=== PATIENT | female | born 1975 | race Caucasian/White ===

== ENCOUNTER 2017-04-01 01:42 | Emergency (ER) | payer OTHER ==
[2017-04-01 01:51] VITALS: RESP 16
[2017-04-01] MEDS ORDERED: DIPH,PERTUS(ACELL)TETVAC-LF 0.5 ML VIAL IM ONE (02:36)
[2017-04-01] MEDS ORDERED: HYDROcodone/APAP 5-325MG 1 EACH TAB PO STA (02:42)
[2017-04-01] MEDS ORDERED: LEVOFLOXACIN 750 MG TAB PO STA (02:48)
--- NOTE | 2017-04-01 02:56 | ED ---
Lower Extremity Injury HPI - General Chief Complaint: Extremity Injury, Lower Stated Complaint: foot pain Time Seen by Provider: 04/01/17 02:09 Source: patient, RN notes reviewed Mode of arrival: ambulatory Limitations: no limitations - History of Present Illness Initial Comments: Patient is a 41-year-old female presents to the emergency room for evaluation of left foot pain and swelling. Patient states on 03/24/17 she stepped on a nail while wearing her shoe. Patient states the nail went through her shoe and through her foot. Patient states that she has been having increasing pain at the puncture wound and swelling and redness of her foot. Patient states that she has been soaking her foot in peroxide for the past few days. Patient states green pus has been draining from the puncture wound. Patient denies fevers or chills. Patient states she has not had a tetanus vaccine in 20 years. Patient denies any other injuries or complaints. - Related Data Home Medications Medication Instructions Recorded Confirmed Albuterol Inhaler [Ventolin 1 - 2 puff INHALATION Q6HR PRN 01/06/15 01/06/15 Inhaler] DULoxetine HCL [Cymbalta] 60 mg PO BID 01/06/15 01/06/15 HYDROcodone/APAP 10-325MG [[place] 1 each PO Q6H PRN 01/06/15 01/06/15 10] Ibuprofen [Motrin] 800 mg PO Q8HR PRN 01/06/15 01/06/15 Pregabalin [Lyrica] 150 mg PO TID 01/06/15 01/06/15 buPROPion SR [Wellbutrin Sr] 150 mg PO BID 01/06/15 01/06/15 Allergies Allergy/AdvReac Type Severity Reaction Status Date / Time Iodinated Contrast Media - Allergy Anaphylaxis Verified 04/01/17 01:51 Oral and Review of Systems ROS Statement: Those systems with pertinent positive or pertinent negative responses have been documented in the HPI. ROS Other: All systems not noted in ROS Statement are negative. Past Medical History Past Medical History: Asthma, Cancer, Fibromyalgia, GERD/Reflux, Rheumatoid Arthritis (RA) Additional Past Medical History / Comment(s): CA OF CERVIX AND UTERUS History of Any Multi-Drug Resistant Organisms: None Reported Past Surgical History: Hysterectomy Past Psychological History: Anxiety, Bipolar Smoking Status: Heavy tobacco smoker Past Alcohol Use History: Occasional Past Drug Use History: None Reported General Exam - General Exam Comments Initial Comments: sitting in exam room, no acute distress. Limitations: no limitations General appearance: alert, in no apparent distress Head exam: Present: atraumatic, normocephalic, normal inspection Eye exam: Present: normal appearance ENT exam: Present: normal exam Neck exam: Present: normal inspection Respiratory exam: Present: normal lung sounds bilaterally. Absent: respiratory distress Cardiovascular Exam: Present: normal rhythm, tachycardia, normal heart sounds Left Foot/Toe exam: Present: tenderness, swelling, erythema (dorsal foot to the ankle ). Absent: normal inspection (puncture wound on the distal mid plantar foot ) Neurovascular tendon exam: Present: no vascular compromise. Absent: pulse deficit (2+ dorsal pedal and posterior tibial pulses), abnormal cap refill ( capillary refill less than 2 seconds) Back exam: Present: normal inspection Neurological exam: Present: alert, oriented X3, CN II-XII intact Psychiatric exam: Present: normal affect, normal mood Skin exam: Present: warm, dry. Absent: rash Course Vital Signs 04/01/17 04/01/17 01:45 03:19 Temperature 99.2 F 98.7 F Pulse Rate 108 H 110 H Respiratory 16 16 Rate Blood Pressure 127/88 142/98 O2 Sat by Pulse 98 98 Oximetry Medical Decision Making - Medical Decision Making Patient is a 41-year-old female presents to emergency room for evaluation of left foot cellulitis from puncture wound. Labs ordered. X-ray of left foot ordered. Patient updated on her tetanus vaccine. Plan was to admit patient with IV antibiotics. Patient states that she needs to go home first before she is admitted. I explained to patient that she would be leaving AGAINST MEDICAL ADVICE and increased risk of infection and possible loss of her foot if not treated appropriately. Patient given a dose of Levaquin before she left. Case discussed with Dr. Purcell. Disposition Clinical Impression: Cellulitis of left foot, Puncture wound Disposition: Left Against Medical Advice Condition: Stable Referrals: Marcial Lea MD [Primary Care Provider] - 1-2 days
[2017-04-01 03:21] VITALS: BP 142/98; PULSE 110; TEMP 98.7
[2017-04-01 03:29] LABS: Basophils % (A) 1 %; CH 32.3; CHCM 34.1; Eosinophils # (A) 0.6 k/uL (0-0.7); Eosinophils % (A) 9 %; HCT 39.3 % (34.0-46.0); Luc # (Auto) 0.16; Luc % (Auto) 2; Lymphocytes # (A) 1.2 k/uL (1.0-4.8); Lymphocytes % (A) 17 %; MCH 31.4 pg (25.0-35.0); MCHC 33.1 g/dL (31.0-37.0); Monocytes # (A) 0.4 k/uL (0-1.0); Monocytes % (A) 5 %; Neutrophils # (A) 4.8 k/uL (1.3-7.7); Neutrophils % (A) 67 %; RBC 4.13 m/uL (3.80-5.40); RDW 13.3 % (11.5-15.5); WBC 7.3 k/uL (3.8-10.6); WBC (Perox) 7.57
[2017-04-01 03:50] LABS: ALT 27 U/L (9-52); AST 16 U/L (14-36); Alkaline Phosphatase 56 U/L (38-126); Anion Gap 8 mmol/L; Blood Urea Nitrogen 10 mg/dL (7-17); Carbon Dioxide 28 mmol/L (22-30); Chloride 103 mmol/L (98-107); Glucose 81 mg/dL (74-99); Non-African American GFR(MDRD) >60 (>60 ml/min/1.73 sqM); Potassium 3.3 mmol/L (3.5-5.1); Sodium 139 mmol/L (137-145); Total Bilirubin 0.3 mg/dL (0.2-1.3); Total Protein 6.7 g/dL (6.3-8.2)
== END 2017-04-01 03:21 | disposition left against medical advice (07) ==
LOC: EC 01:42
DX: L03.116 Cellulitis of left lower limb (principal); F31.9 Bipolar disorder, unspecified; F17.200 Nicotine dependence, unspecified, uncomplicated; Z85.41 Personal history of malignant neoplasm of cervix uteri; Z91.041 Radiographic dye allergy status; Z53.29 Procedure and treatment not carried out because of patient's decision for other reasons; Z23 Encounter for immunization; Z79.899 Other long term (current) drug therapy
CPT/HCPCS: 36415; 80053; 83605; 85025; 87040; 90471; 90715; 99283

== ENCOUNTER 2017-04-01 05:55 | Observation (INO) | payer OTHER ==
--- NOTE | 2017-04-01 06:12 | ED ---
General Adult HPI - General Chief complaint: Extremity Injury, Lower Stated complaint: Foot infection Time Seen by Provider: 04/01/17 06:00 Source: patient, RN notes reviewed Mode of arrival: ambulatory Limitations: no limitations - History of Present Illness Initial comments: This is a 41-year-old female who presents to the emergency department with cellulitis to the left foot. Patient was here earlier in the evening and she left AGAINST MEDICAL ADVICE. Patient now returns the foot is not getting any better and is extremely painful. Patient states she stepped on a nail approximately to go and is been getting worse ever since but she has not gone standing on. Patient denies any fever. Patient states the foot is not swollen and very erythematous. Patient states touching the foot anywhere is very painful. Patient denies any swelling beyond the foot. She denies any redness. Patient states she did have shoes on when she stepped on the nail. - Related Data Home Medications Medication Instructions Recorded Confirmed Albuterol Inhaler [Ventolin 1 - 2 puff INHALATION Q6HR PRN 01/06/15 01/06/15 Inhaler] DULoxetine HCL [Cymbalta] 60 mg PO BID 01/06/15 01/06/15 HYDROcodone/APAP 10-325MG [[place] 1 each PO Q6H PRN 01/06/15 01/06/15 10] Ibuprofen [Motrin] 800 mg PO Q8HR PRN 01/06/15 01/06/15 Pregabalin [Lyrica] 150 mg PO TID 01/06/15 01/06/15 buPROPion SR [Wellbutrin Sr] 150 mg PO BID 01/06/15 01/06/15 Allergies Allergy/AdvReac Type Severity Reaction Status Date / Time Iodinated Contrast Media - Allergy Anaphylaxis Verified 04/01/17 01:51 Oral and Review of Systems ROS Statement: Those systems with pertinent positive or pertinent negative responses have been documented in the HPI. ROS Other: All systems not noted in ROS Statement are negative. Past Medical History Past Medical History: Asthma, Cancer, Fibromyalgia, GERD/Reflux, Rheumatoid Arthritis (RA) Additional Past Medical History / Comment(s): CA OF CERVIX AND UTERUS History of Any Multi-Drug Resistant Organisms: None Reported Past Surgical History: Hysterectomy Past Psychological History: Anxiety, Bipolar Smoking Status: Heavy tobacco smoker Past Alcohol Use History: Occasional Past Drug Use History: None Reported General Exam - General Exam Comments Initial Comments: GENERAL: Patient is well-developed and well-nourished. Patient is nontoxic and well- hydrated and is in moderate distress. ENT: Neck is soft and supple. No significant lymphadenopathy is noted. Oropharynx is clear. Moist mucous membranes. Neck has full range of motion without eliciting any pain. EYES: The sclera were anicteric and conjunctiva were pink and moist. Extraocular movements were intact and pupils were equal round and reactive to light. Eyelids were unremarkable. PULMONARY: Unlabored respirations. Good breath sounds bilaterally. No audible rales rhonchi or wheezing was noted. CARDIOVASCULAR: There is a regular rate and rhythm without any murmurs gallops or rubs. ABDOMEN: Soft and nontender with normal bowel sounds. No palpable organomegaly was noted. There is no palpable pulsatile mass. SKIN: Skin is clear with no lesions or rashes and otherwise unremarkable. NEUROLOGIC: Patient is alert and oriented x3. Cranial nerves II through XII are grossly intact. Motor and sensory are also intact. Normal speech, volume and content. Symmetrical smile. MUSCULOSKELETAL: Left foot is very swollen and erythematous and tender to palpation. Patient has a small puncture wound on the plantar surface of the foot that appears to be healing over. LYMPHATICS: No significant lymphadenopathy is noted PSYCHIATRIC: Normal psychiatric evaluation. Limitations: no limitations Course Vital Signs 04/01/17 05:57 Temperature 99.2 F Pulse Rate 12 L Respiratory 18 Rate Blood Pressure 131/76 O2 Sat by Pulse 98 Oximetry Medical Decision Making - Medical Decision Making X-ray of the foot shows no acute abnormality. Disposition Clinical Impression: Cellulitis of left foot, Puncture wound of foot Disposition: ADMITTED IP TO THIS HOSP Referrals: Marcial Lea MD [Primary Care Provider] - 1-2 days Time of Disposition: 06:14
[2017-04-01] MEDS ORDERED: PIPERACILLIN-TAZOBACTAM 3.375 GM in DEXTROSE/WATER 1 50ML.BAG IVPB STA (06:15)
[2017-04-01] MEDS ORDERED: SODIUM CHLORIDE 0.9% 1,000 ML IV ONE (06:16)
[2017-04-01] MEDS ORDERED: ONDANSETRON 4 MG/2 ML VIAL IVP STA (06:43)
[2017-04-01] MEDS ORDERED: HYDROmorphone 1 MG/ML 1 ML SYRINGE IVP STA (06:43)
--- NOTE | 2017-04-01 06:47 | XR ---
EXAMINATION TYPE: XR foot limited LT DATE OF EXAM ORDERED: 04/01/2017 HISTORY: Pain. COMPARISON: None. FINDINGS: No fracture, dislocation or radiopaque foreign body is seen. There is mild swelling over t he dorsum of the foot. There is a tiny plantar calcaneal spur. IMPRESSION: NO ACUTE OSSEOUS LESION AND NO RADIOPAQUE FOREIGN BODY.
[2017-04-01] MEDS: KETOROLAC 30 MG/ML 1 ML VIAL IVP SCH ×2 (14:28→23:52)
[2017-04-01] MEDS ORDERED: HYDROmorphone 1 MG/ML 1 ML SYRINGE IVP PRN (15:42)
[2017-04-01] MEDS: HYDROcodone/APAP 5-325MG 1 EACH TAB PO PRN ×2 (15:56→21:41)
[2017-04-01] MEDS ORDERED: PIPERACILLIN-TAZOBACTAM 3.375 GM in DEXTROSE/WATER 1 50ML.BAG IVPB SCH (16:00)
[2017-04-01 18:46] VITALS: BMI 21.8
--- NOTE | 2017-04-01 22:51 | HP ---
DATE OF ADMISSION: 04/01/2017 REASON FOR ADMISSION: Swollen left foot. HISTORY OF PRESENT ILLNESS: This is a 41-year-old female with ongoing tobacco use, comes into the hospital with trauma to the left foot while patient was moving. Patient states that she stepped on a nail on 03/24/2017. Thereafter noted to have significant swelling. Patient has been soaking her leg in peroxide solution. However, as the patient did not notice any improvement and significant swelling of her foot, the patient came to the emergency room for ongoing evaluation. Patient, however, had to leave against medical advice in order to take care of her children and came back into the hospital an hour later. The patient is admitted to the hospital and was given a dose of the Levaquin and Zosyn. Patient was also given a dose of tetanus toxoid appropriately. Today patient's leg appears to be significantly improved from the previous description, does have significant tenderness according to her. No fevers, chills, nausea, vomiting, headaches, blurry vision, abdominal pain, urinary urgency or frequency or diarrhea is reported. Home medications include: 1. Albuterol. 2. Cymbalta. 3. [place]. 4. Motrin. 5. Lyrica. 6. Wellbutrin. ALLERGIES: IV CONTRAST. REVIEW OF SYSTEMS: Fourteen-point review of system was done; none pertinent other than was mentioned above. PAST MEDICAL HISTORY: Includes asthma, GERD, cervical cancer, rheumatoid arthritis. PAST SURGICAL HISTORY: Hysterectomy. PHYSICAL EXAM: VITALS: Temperature 99.2, heart rate is 70 to 80 beats per minute, respiratory rate 18, blood pressure 131/76, saturating 98% on room air. GENERALLY: Patient appears to be alert, oriented x3. HEENT: The pupils are equal and reactive to light and accommodation. HEART: S1, S2 present. No murmur appreciated. LUNGS: Good air entry. No wheezing or rhonchi noted. ABDOMINAL EXAM: Soft, nontender, no organomegaly appreciated. GENITOURINARY: No Salgado in place. EXTREMITIES: Pulses can be palpated distally. Denies any tenderness on gross palpation. NEUROLOGICALLY: Grossly cranial nerves 2-12 intact. No motor or sensory deficits noted. SKIN: Left foot appears to have associated erythema. There was an entry site noted on the sole of the foot around the second metatarsal region. Tender to palpation. However no significant swelling is appreciated at this time. Radiologic x-ray eval of the left foot does not show any foreign objects or any signs of osteomyelitis. ASSESSMENT AND PLAN: 1. Cellulitis of the left foot. 2. Ongoing tobacco. 3. Cervical cancer, previous history. PLAN: Discontinue Zosyn. Continue with Levaquin ( ). Patient is tolerating diet. The patient is improved. Recommend elevation of the left foot. If patient appears to be stable in the next 24 hours, can likely be discharged home with p.o. Levaquin. Patient does not have any signs of systemic infection at this time. The infection does not extend past the ankle.
[2017-04-02] MEDS ORDERED: LEVOFLOXACIN 750MG-D5W PMX 750 MG in DEXTROSE/WATER 1 150ML.BAG IVPB SCH (03:00)
[2017-04-02] MEDS: KETOROLAC 30 MG/ML 1 ML VIAL IVP SCH ×3 (06:20→17:58)
[2017-04-02] MEDS: HYDROcodone/APAP 5-325MG 1 EACH TAB PO PRN (08:35)
[2017-04-02 09:29] LABS: Basophils % (A) 0 %; CH 32.2; CHCM 32.5; Eosinophils # (A) 0.5 k/uL (0-0.7); Eosinophils % (A) 8 %; HCT 41.1 % (34.0-46.0); HDW 2.15; HGB 13.3 gm/dL (11.4-16.0); Luc # (Auto) 0.16; Luc % (Auto) 2; Lymphocytes # (A) 1.1 k/uL (1.0-4.8); Lymphocytes % (A) 16 %; MCH 32.3 pg (25.0-35.0); MCHC 32.4 g/dL (31.0-37.0); MCV 99.5 fL (80.0-100.0); Mean Platelet Volume 7.6; Monocytes # (A) 0.4 k/uL (0-1.0); Monocytes % (A) 5 %; Neutrophils # (A) 4.8 k/uL (1.3-7.7); Neutrophils % (A) 69 %; RBC 4.14 m/uL (3.80-5.40); RDW 13.4 % (11.5-15.5); WBC (Perox) 7.26
[2017-04-02 14:36] VITALS: BP 116/58; PULSE 99; RESP 16; TEMP 98.4
--- NOTE | 2017-04-04 09:27 | DS ---
DATE OF ADMISSION: 04/01/2017 DATE OF DISCHARGE: 04/02/2017 DATE OF SERVICE: 04/02/2017 HOSPITAL COURSE: Ms. Preciado is a 41-year-old female with ongoing tobacco use, admitted to the hospital with the chief complaint of left foot trauma. Patient states that she stepped on a nail on 03/24/2017 and thereafter noted to have some swelling. Patient has been soaking her leg in peroxide solution and she did not notice any improvement and there was significant welling of the foot and so she came into the emergency room for ongoing evaluation. Patient was admitted for a left foot infection. Patient's leg showed improvement as she describes previously there was swelling of her foot which has decreased significantly. She fills some tenderness at the site of penetration injury but no discharge or no redness noticed. Patient does not have any other complaints except for some she mild pain when she tries to bear weight on that limb. As the patient showed significant improvement, the patient is being discharged home and wants to consider course of Levaquin for a total of 10 days. PATIENT'S DISCHARGE DIAGNOSES: 1. Cellulitis of the left foot at point of origin. 2. History of cervical cancer in the past. PATIENT'S DISCHARGE MEDICATIONS: 1. Motrin 800 mg p.o. 3 times a day p.r.n. for pain. 2. Levofloxacin 750 mg p.o. daily for 12 days. The patient is advised to follow with her primary care physician, Dr. Merry Lea in 1 to 2 days. Patient is advised to have weight-bearing as tolerated . If patient notices any swelling or redness, advised to seek medical attention as soon as possible. Patient is being discharged home in a stable condition. More than 35 minutes spent in discharge evaluation. MIKE
== END 2017-04-02 19:52 | disposition home or self-care (01) ==
LOC: EC 05:55 → 4MS4W 06:16
PROVIDERS: ADMIT Hospitalist; ATTEND Hospitalist
DX: L03.116 Cellulitis of left lower limb (principal); J45.909 Unspecified asthma, uncomplicated; M79.7 Fibromyalgia; F41.9 Anxiety disorder, unspecified; F31.9 Bipolar disorder, unspecified; S91.339A Puncture wound without foreign body, unspecified foot, initial encounter; W45.0XXA Nail entering through skin, initial encounter; Z79.899 Other long term (current) drug therapy; Z91.041 Radiographic dye allergy status; Z85.41 Personal history of malignant neoplasm of cervix uteri; F17.200 Nicotine dependence, unspecified, uncomplicated
CPT/HCPCS: 96375 ×3; 96365 ×2; 96376 ×2; 96361; 96366 ×2; 96367; 90471; 99283; 99284; 36415; 80053; 83605; 85025 ×2; 87040; 73620; 90715; G0378 ×2; J2405; J1885 ×2; J1170; J1956; J2543

== ENCOUNTER → 2018-05-11 | Outpatient (CLI) | payer OTHER ==
[2018-05-11 14:45] LABS: HCT 43.8 % (34.0-46.0); HGB 14.1 gm/dL (11.4-16.0); MCH 30.7 pg (25.0-35.0); MCHC 32.1 g/dL (31.0-37.0); MCV 95.6 fL (80.0-100.0); Mean Platelet Volume 7.9; Platelet Count 248 k/uL (150-450); RBC 4.58 m/uL (3.80-5.40); RDW 13.5 % (11.5-15.5); WBC 8.1 k/uL (3.8-10.6)
[2018-05-11 15:03] LABS: ALT 25 U/L (9-52); AST 17 U/L (14-36); Albumin 4.7 g/dL (3.5-5.0); Alkaline Phosphatase 50 U/L (38-126); Anion Gap 9 mmol/L; Blood Urea Nitrogen 6 mg/dL (7-17); Calcium 10.2 mg/dL (8.4-10.2); Carbon Dioxide 26 mmol/L (22-30); Chloride 104 mmol/L (98-107); Cholesterol 200 mg/dL (<200); Glucose 88 mg/dL (74-99); HDL Cholesterol 56 mg/dL (40-60); LDL Cholesterol,Calculated 116 mg/dL (0-99); Potassium 4.7 mmol/L (3.5-5.1); Sodium 139 mmol/L (137-145); Total Bilirubin 0.6 mg/dL (0.2-1.3); Total Protein 7.2 g/dL (6.3-8.2); Triglycerides 138 mg/dL (<150)
[2018-05-11 15:19] LABS: T4, Free (Free Thyroxine) 1.11 ng/dL (0.78-2.19)
--- NOTE | 2018-05-11 16:01 | XR ---
EXAMINATION TYPE: XR mandible complete DATE OF EXAM: 05/11/2018 COMPARISON: NONE HISTORY: Mandibular trauma with subsequent pain. TECHNIQUE: Frontal, lateral, bilateral oblique, and open-mouth views of the mandible were obtained. FINDINGS: There is no evidence of mandibular acute displaced fracture or fracture of the zygomatic ar ches. Paranasal sinuses appear well aerated. There is straightening of the usual cervical lordosis al though cervical alignment and vertebral body heights are maintained in their visualized portions. No prevertebral soft tissue swelling in the upper cervical spine. Nasal bone appears grossly intact. No temporomandibular joint dislocation. IMPRESSION: No radiographic evidence of mandibular fracture or temporomandibular joint dislocation. I f there is persistent pain CT facial bones could be performed.
--- NOTE | 2018-05-11 16:03 | XR ---
EXAMINATION TYPE: XR chest 2V DATE OF EXAM: 05/11/2018 COMPARISON: 02/01/2011 HISTORY: Recent trauma with subsequent chest pain. TECHNIQUE: Frontal and lateral views of the chest are obtained. FINDINGS: There is no focal air space opacity, pleural effusion, or pneumothorax seen. The cardiac silhouette size is within normal limits. The osseous structures are intact. IMPRESSION: No acute cardiopulmonary process.
== END | disposition home or self-care (01) ==
LOC: LABWHC1 14:08
PROVIDERS: ATTEND Internal Medicine
DX: M26.601 Right temporomandibular joint disorder, unspecified (principal); Z00.00 Encounter for general adult medical examination without abnormal findings; J44.9 Chronic obstructive pulmonary disease, unspecified; E78.2 Mixed hyperlipidemia; M19.90 Unspecified osteoarthritis, unspecified site; K21.0 Gastro-esophageal reflux disease with esophagitis
CPT/HCPCS: 36415; 70110; 71046; 80053; 80061; 84439; 84443; 85027

== ENCOUNTER → 2019-08-30 | Outpatient (CLI) | payer OTHER ==
[2019-08-30 12:47] LABS: Basophils % (A) 0 %; Eosinophils # (A) 0.3 k/uL (0-0.7); Eosinophils % (A) 3 %; HCT 44.2 % (34.0-46.0); HGB 14.3 gm/dL (11.4-16.0); Lymphocytes % (A) 20 %; MCH 31.8 pg (25.0-35.0); MCHC 32.4 g/dL (31.0-37.0); MCV 98.2 fL (80.0-100.0); Mean Platelet Volume 8.1; Monocytes # (A) 0.4 k/uL (0-1.0); Monocytes % (A) 4 %; Neutrophils # (A) 6.7 k/uL (1.3-7.7); Neutrophils % (A) 70 %; Platelet Count 242 k/uL (150-450); RDW 12.5 % (11.5-15.5); WBC 9.6 k/uL (3.8-10.6)
[2019-08-30 20:08] LABS: Albumin 4.9 g/dL (3.80-4.90); Albumin/Globulin Ratio 2.58 (1.60-3.17); Bilirubin, Conjugated 0.2 mg/dL (0.20-0.40); Bilirubin,Unconjugated 0.3 mg/dL; Globulin 1.9 g/dL (1.6-3.3); Total Bilirubin 0.5 mg/dL (0.3-1.2); Total Protein 6.8 g/dL (6.2-8.2)
== END | disposition home or self-care (01) ==
LOC: LABWHC1 10:51
PROVIDERS: ATTEND Nurse Practitioner Family
DX: Z51.81 Encounter for therapeutic drug level monitoring (principal); Z79.899 Other long term (current) drug therapy
CPT/HCPCS: 36415; 80076; 80164; 85025

== ENCOUNTER → 2020-01-01 | Outpatient (CLI) | payer OTHER ==
[2020-01-01 11:12] LABS: Basophils % (A) 1 %; Eosinophils # (A) 0.3 k/uL (0-0.7); Eosinophils % (A) 6 %; HCT 39.8 % (34.0-46.0); HGB 13.1 gm/dL (11.4-16.0); Lymphocytes # (A) 1.5 k/uL (1.0-4.8); Lymphocytes % (A) 28 %; MCH 32.6 pg (25.0-35.0); MCHC 32.8 g/dL (31.0-37.0); MCV 99.3 fL (80.0-100.0); Mean Platelet Volume 8.9; Monocytes # (A) 0.3 k/uL (0-1.0); Monocytes % (A) 7 %; Neutrophils # (A) 2.8 k/uL (1.3-7.7); Neutrophils % (A) 55 %; Platelet Count 220 k/uL (150-450); RBC 4.01 m/uL (3.80-5.40); RDW 13.4 % (11.5-15.5); WBC 5.1 k/uL (3.8-10.6)
[2020-01-01 17:57] LABS: Valproic Acid (Depakene) 59.8 ug/mL (50.0-100.0)
[2020-01-01 18:25] LABS: ALT 19 U/L (8-44); AST 17 U/L (13-35); Albumin/Globulin Ratio 2.42 (1.60-3.17); Alkaline Phosphatase 38 U/L (41-126); Bilirubin, Conjugated <0.20 mg/dL (0.20-0.40); Globulin 1.9 g/dL (1.6-3.3); Total Bilirubin 0.2 mg/dL (0.2-1.2); Total Protein 6.5 g/dL (6.2-8.2)
== END | disposition home or self-care (01) ==
LOC: LABWHC1 09:53
PROVIDERS: ATTEND Nurse Practitioner Family
DX: Z51.81 Encounter for therapeutic drug level monitoring (principal); Z79.899 Other long term (current) drug therapy
CPT/HCPCS: 36415; 80076; 80164; 85025

== ENCOUNTER → 2020-03-21 | Outpatient (CLI) | payer OTHER ==
[2020-03-21 13:03] LABS: Basophils % (A) 0 %; Eosinophils # (A) 0.4 k/uL (0-0.7); Eosinophils % (A) 6 %; HCT 43.3 % (34.0-46.0); HGB 13.7 gm/dL (11.4-16.0); Lymphocytes # (A) 1.7 k/uL (1.0-4.8); Lymphocytes % (A) 24 %; MCH 31.6 pg (25.0-35.0); MCHC 31.6 g/dL (31.0-37.0); MCV 100.1 fL (80.0-100.0); Mean Platelet Volume 9.5; Monocytes # (A) 0.4 k/uL (0-1.0); Monocytes % (A) 6 %; Neutrophils # (A) 4.2 k/uL (1.3-7.7); Neutrophils % (A) 61 %; Platelet Count 201 k/uL (150-450); RBC 4.32 m/uL (3.80-5.40); RDW 12.8 % (11.5-15.5)
[2020-03-21 19:14] LABS: Valproic Acid (Depakene) 73.7 ug/mL (50.0-100.0)
[2020-03-21 19:20] LABS: ALT 25 U/L (8-44); AST 21 U/L (13-35); Albumin/Globulin Ratio 2.14 (1.60-3.17); Alkaline Phosphatase 38 U/L (41-126); Bilirubin, Conjugated <0.20 mg/dL (0.20-0.40); Globulin 2.1 g/dL (1.6-3.3); Total Bilirubin 0.3 mg/dL (0.2-1.2); Total Protein 6.6 g/dL (6.2-8.2)
== END | disposition home or self-care (01) ==
LOC: LABWHC1 11:38
PROVIDERS: ATTEND Nurse Practitioner Family
DX: Z51.81 Encounter for therapeutic drug level monitoring (principal); Z79.899 Other long term (current) drug therapy
CPT/HCPCS: 36415; 80076; 80164; 85025

== ENCOUNTER → 2023-07-05 | Outpatient (CLI) | payer OTHER ==
[2023-07-05 16:41] LABS: HGB 12.5 d/dL (12.0-15.0); MCH 31.6 pg (27.0-32.0); MCHC 32.9 d/dL (32.0-37.0); MCV 96.2 FL (80.0-97.0); Mean Platelet Volume 11.5 FL (9.5-12.2); NRBC Per 100 WBC 0 X 10*3/uL (0.00-0.01); Platelet Count 182 X 10*3/uL (140-440); RBC 3.95 X 10*6/uL (4.10-5.20); RDW 13.9 % (11.5-14.5)
[2023-07-05 16:57] LABS: ALT 14 U/L (8-44); AST 14 U/L (13-35); BUN/Creat Ratio 13.14 Ratio (12.00-20.00); Blood Urea Nitrogen 9.2 mg/dL (9.0-27.0); Calcium 9.3 mg/dL (8.7-10.3); Carbon Dioxide 27.2 mmol/L (21.6-31.8); Chloride 103 mmol/L (96-109); Chol/HDL Ratio 3.05 Ratio; Glucose 78 mg/dL (70-110); LDL Cholesterol,Calculated 91.3 mg/dL (0.0-131.0); Potassium 4.2 mmol/L (3.5-5.5); Sodium 139 mmol/L (135-145)
== END | disposition home or self-care (01) ==
LOC: LABWHC1 12:00
PROVIDERS: ATTEND Student in an Organized Health Care Education/Training Program
DX: I10 Essential (primary) hypertension (principal); R07.9 Chest pain, unspecified
CPT/HCPCS: 36415; 80048; 80061; 83036; 84443; 84450; 84460; 85027

== ENCOUNTER 2023-07-12 06:07 | Day surgery (SDC) | payer OTHER ==
[2023-07-08 15:31] VITALS: BMI 23.2
[~2023-07-12 06:07] MED LIST: ALPRAZolam 0.25 MG TAB PO PRN; ALPRAZolam 0.5 MG TAB PO PRN; ASPIRIN 325 MG TAB PO STA; HEPARIN SODIUM,PORCINE (1 ML) 2,500 UNIT in SODIUM CHLORIDE 0.9% 250 ML IRRIGATION PRN; HEPARIN SODIUM,PORCINE 10,000 UNIT in SODIUM CHLORIDE 0.9% 1,000 ML IRRIGATION PRN; NITROGLYCERIN SL TABS 0.4 MG TAB SUBLINGUAL PRN; SODIUM CHLORIDE 0.9% 1,000 ML in EMPTY BAG 1 BAG IV SCH
[2023-07-12] MEDS ORDERED: SODIUM CHLORIDE 0.9% 1,000 ML IV ONE (06:40)
[2023-07-12 06:51] VITALS: RESP 16; TEMP 97.7
[2023-07-12] MEDS ORDERED: HEPARIN SODIUM 1,000 UN/ML (10ML VL) ONE (07:36)
[2023-07-12] MEDS ORDERED: fentaNYL (PF) 50 MCG/ML 2 ML AMP ONE (07:36)
[2023-07-12] MEDS ORDERED: diphenhydrAMINE 50 MG/ML 1 ML VIAL ONE (07:42)
[2023-07-12] MEDS ORDERED: methylPREDNISolone SOD SUCCI 125 MG/2 ML VIAL ONE (07:45)
[2023-07-12] MEDS ORDERED: LIDOCAINE 1% INJ 10MG/ML (5 ML VIAL-PF) SQ ONE (07:46)
[2023-07-12] MEDS ORDERED: VERAPAMIL SYRINGE (5 MG/10 ML) INTRAARTER ONE (07:47)
[2023-07-12] MEDS ORDERED: methylPREDNISolone SOD SUCCI 125 MG/2 ML VIAL IVP ONE (07:48)
[2023-07-12] MEDS ORDERED: MIDAZOLAM 2 MG/2 ML VIAL IVP ONE (07:48)
[2023-07-12] MEDS ORDERED: diphenhydrAMINE 50 MG/ML 1 ML VIAL IVP ONE (07:48)
[2023-07-12] MEDS ORDERED: fentaNYL (PF) 50 MCG/ML 2 ML AMP IVP ONE (07:48)
[2023-07-12] MEDS ORDERED: IOPAMIDOL-370 100ML BTL INJ ONE (08:03)
[2023-07-12] MEDS ORDERED: RX INFO: IV CONTRAST WAS GIVEN 1 EACH MISC MISCELLANE PRN (08:13)
--- NOTE | 2023-07-12 08:13 | P.CARDCATH ---
Date of Procedure: 07/12/23 Description of Procedure: DIAGNOSTIC CORONARY ANGIOGRAPHY and LEFT HEART CATH REPORT PROCEDURES PERFORMED: Left heart catheterization Selective coronary angiography Moderate conscious sedation 15 mins Right radial access INDICATION: Unstable angina and equivocal stress test 47-year-old female with past medical history of hypertension and multiple arthritic complaints presented to my clinic with symptoms of substernal chest pain and chest pressure which was associated with shortness of breath which got worse with activity. She initially presented to [facility] where she had a treadmill stress test but patient could not achieve 85% of aged predicted ma ximum heart rate therefore her stress test was labeled equivocal. On my evaluation in clinic today she is reporting increasing no symptoms at a frequency of 1-2 times per day and this has significantly increased over last 1 week. She does tobacco vape. Due to her risk factors and crescendo nature of her typical chest pain she was scheduled for an outpatient heart catheterization. CONSENT: I have discussed the risks, benefits and alternative therapies for the above-mentioned procedure, sedation/analgesia and necessary blood product administration (if indicated, as they pertain to this patient). The patient has indicated understanding and acceptance of the risks and procedures discussed. Conscious Sedation: Patient's ECG, heart rate, blood pressure, pulse oximetry was monitored throughout the duration of procedure under the direct supervision. [1] mg Versed and [50] mg Fentanyl were used for induction of moderate conscious sedation. Total duration of 15 minutes. PROCEDURE: Patient is ALLERGIC to iodine contrast with labored history of throat swelling. Patient got up prepped with prednisone and Benadryl and Pepcid before having the procedure started. Just before the procedure to give an additional 40 mg IV Solu-Medrol and 25 mg of Benadryl. After the risks, benefits and alternatives of the above mentioned procedure exp lained in detail with the patient, informed consent was obtained. Patient was taken to the catheterization lab and prepped and draped in usual sterile fashion. 1% lidocaine was infiltrated over the right radial artery. A 6-[place] sheath was placed in the right radial artery using modified Seldinger technique. The sheath was flushed 5 mg verapamil was administered intra-arterially. J tipped wire was advanced under fluoroscopic guidance. Once the wire tip reached aortic root [3000] units of IV heparin was given. Over the wire 5 ZAMBIAN JL3.5 diagnostic catheter was advanced. Wire was removed, catheter was flushed and manipulated under fluoroscopy to selectively engaged the left coronary ostium. Left coronary angioplasty was performed in different angiographic projections. This catheter was exchanged for a 5 [place]AM[place] JR4 diagnostic catheter over the wire. The catheter was flushed and manipulated to cross the aortic valve. LV pressures were obtained. Pullback was performed across aortic valve and catheter was manipulated to selectively engage the right coronary ostium under fluoroscopic guidance. Right coronary angiography was performed in different angiographic projections. Catheter was removed over the wire. Radial sheath was flushed. The right radial sheath was removed and a TR band was placed with excellent patent hemostasis was achieved. The patient tolerated the procedure well. Patient was transported back to the post catheterization holding area in stable condition. Angiographic images were reviewed in detail. HEMODYNAMICS: Aortic Pressure: 157/94 mmHg. LV pressure: 160/7 mmHg. LVEDP 20 mmHg. SELECTIVE CORONARY ARTERIOGRAPHY: LEFT MAIN: The left main is a large caliber vessel which bifurcates into the LAD and circumflex. It appears angiographically normal LEFT ANTERIOR DESCENDING CORONARY ARTERY: LAD is a large caliber vessel which wraps around to the apex. It appears angiographically normal. It gives rise to a small diagonal 1 and diagonal 2 which appears angiographically normal LEFT CIRCUMFLEX CORONARY ARTERY: It is nondominant vessel. Proximal Left circumflex is a moderate caliber vessel without significant stenosis. It gives to OM branches which appears angiographically normal. AV groove branch is very small. RIGHT CORONARY ARTERY: Dominant vessel. The right coronary artery is a large caliber vessel which gives off a PDA and PLV branch. It appears angiographically normal. IMPRESSION: Angiographically normal coronary arteries as described above. Normal left sided filling pressures PLAN: Aggressive risk factor modification per most recent ACC/AHA guidelines. 150 cc fluids for 3 hours Discharge home in 3 hours Follow-up in the office in 1-2 weeks. Performing Physician Saad Morel MD
[2023-07-12] MEDS ORDERED: SODIUM CHLORIDE 0.9% 1,000 ML IV SCH (08:15)
[2023-07-12 13:22] VITALS: BP 111/56; PULSE 62
== END 2023-07-12 12:10 | disposition home or self-care (01) ==
LOC: CATHCVL 06:07
PROVIDERS: ATTEND Student in an Organized Health Care Education/Training Program
DX: I25.110 Atherosclerotic heart disease of native coronary artery with unstable angina pectoris (principal); I10 Essential (primary) hypertension; Z88.8 Allergy status to other drugs, medicaments and biological substances; F12.90 Cannabis use, unspecified, uncomplicated; Z87.891 Personal history of nicotine dependence; Z79.82 Long term (current) use of aspirin; Z79.899 Other long term (current) drug therapy
CPT/HCPCS: 93458; C1894; C1769; J2250; J1200; J2930; J2001; J3010; Q9967

== ENCOUNTER → 2024-03-01 | Outpatient (CLI) | payer OTHER ==
--- NOTE | 2024-03-01 11:09 | USB ---
Reason for Exam: Clinical finding. Indicated Problems: Lump or thickening of the left side. Patient History: Menarche at age 12. First Full-Term at age 18. Right ovary removed at age 16. Hysterectomy at age 36. Postmenopausal. Endometrial cancer, age 16. Ovarian cancer, age 16. Risk Values: [place] 5 year model risk: 0.7%. NCI Lifetime model risk: 6.7%. Technique: Method: Whole Breast Handheld. Doppler: Color. Patient Position: RPO. Prior Study Comparison: 07/03/2012 Bilateral Screening Mammogram, [facility]. Findings: The whole breast of the left breast, the axilla of the left breast and the retroareolar of the left breast were scanned. A complete US of all four quadrants of the breast, axilla, and retro-areolar region were reviewed. At the 11:00 palpable site, 2 cm from the nipple, there is a benign 2.4 cm cyst. This could be aspirated if symptomatic. There are dense bands of tissue throughout with scattered interposed fat lobules but no convincing solid lesion. Benign appearing axillary lymph nodes measuring up to 1.2 cm. Overall Assessment: Suspicious, BI-RAD 4 Management: Stereotactic Core Biopsy of both breasts. For the bilateral calcifications. On the right, refer to annotation on the mag cc view, likely 12:00 position. On the left, refer to annotations on the mag CC and mag lateral views for the 4:00 calcifications anterior depth. Ultrasound-guided left breast cyst aspiration only if the palpable site is symptomatic. Electronically signed and approved by: Janelle Vaughan M.D. Radiologist
--- NOTE | 2024-03-01 11:10 | MM ---
Reason for Exam: Clinical finding. Last mammogram was performed 11 year(s) and 8 month(s) ago. Patient History: Menarche at age 12. First Full-Term at age 18. Right ovary removed at age 16. Hysterectomy at age 36. Postmenopausal. Endometrial cancer, age 16. Ovarian cancer, age 16. Risk Values: [place] 5 year model risk: 0.7%. NCI Lifetime model risk: 6.7%. Tissue Density: The breasts are heterogeneously dense, which may obscure small masses. Findings: Analyzed By CAD. Extensive regional calcifications on both sides. Many of these represent benign milk of calcium. * A small group of punctate and heterogeneous calcifications 12:00 position on the right. * Partially obscured 2.1 cm palpable mass central superior left breast. * The patient's axillary palpable abnormality could not be included in the [id number]. * Tightly grouped 4:00 heterogeneous microcalcifications anterior to middle depth left breast on the CC and lateral views. * An area of posterior inner focal asymmetry in the left breast does not persist on spot 3-D views compatible with superimposition shadow. Overall Assessment: Incomplete: need additional imaging evaluation, BI-RAD 0 Management: Diagnostic Breast Ultrasound of the left breast. Electronically signed and approved by: Janelle Vaughan M.D. Radiologist
== END | disposition home or self-care (01) ==
LOC: RADMAMWWP 09:32
PROVIDERS: ATTEND Internal Medicine Pulmonary Disease
DX: R92.333 Mammographic heterogeneous density, bilateral breasts (principal); N60.02 Solitary cyst of left breast; N63.32 Unspecified lump in axillary tail of the left breast; N63.42 Unspecified lump in left breast, subareolar; R92.0 Mammographic microcalcification found on diagnostic imaging of breast; Z78.0 Asymptomatic menopausal state
CPT/HCPCS: 77066; 76641; G0279; 77062

== ENCOUNTER → 2024-03-15 | Day surgery (SDC) | payer OTHER ==
[~2024-03-15] MED LIST changes: -ALPRAZolam 0.5 MG TAB PO PRN; -ASPIRIN 325 MG TAB PO STA; -HEPARIN SODIUM,PORCINE (1 ML) 2,500 UNIT in SODIUM CHLORIDE 0.9% 250 ML IRRIGATION PRN; -HEPARIN SODIUM,PORCINE 10,000 UNIT in SODIUM CHLORIDE 0.9% 1,000 ML IRRIGATION PRN; -NITROGLYCERIN SL TABS 0.4 MG TAB SUBLINGUAL PRN; -SODIUM CHLORIDE 0.9% 1,000 ML in EMPTY BAG 1 BAG IV SCH
[2024-03-15] MEDS: ALPRAZolam 0.5 MG TAB PO PRN (10:22)
[2024-03-15 11:12] VITALS: RESP 16
[2024-03-15 13:10] VITALS: BP 101/65; PULSE 80; TEMP 98.1
--- NOTE | 2024-03-21 13:36 | MM ---
Risk Values: Josefina 5 year model risk: 0.7%. NCI Lifetime model risk: 6.7%. Prior Study Comparison: 07/03/2012 Bilateral Screening Mammogram, [facility]. 03/01/2024 Bilateral MG 3D diag mammo w/cad MANOJ, [facility]. Pathology Description: Marker Left Behind. Specimen Radiograph. Calcium Found: Yes Needle Type: Eviva Cores: 14 Skin Nicks: 2 Gauge: 9 The procedure of stereotactic guided core biopsy was explained to the patient. Benefits, alternatives, and risks were discussed. An informed consent was then obtained. The shortness pathway for biopsy was chosen. Shortness pathway was lateral approach. I performed the localization, then surgeon, Dr. Carias performed the remainder of the procedure. A vacuum assisted biopsy gun was used to obtain multiple core samples. Initial sample head calcifications. These appeared few in the additional sequence of 6 additional samples were obtained. No additional calcifications are identified. The procedure was completed at this time. The patient tolerated the procedure well without any immediate complication. The patient was kept in the radiology department for short stay after the procedure and then discharged home in stable condition. Targeted calcifications are identified in specimen mammogram. Post biopsy mammogram shows the clip to appear in satisfactory position relative to the targeted area of concern on the preprocedure images. Impression: SUCCESSFUL, UNCOMPLICATED STEREOTACTIC GUIDED CORE BIOPSY OF AREA OF CONCERN IN THE LEFT BREAST. Pathology Results: Results pending. Pathology Description: Marker Left Behind. Specimen Radiograph. Approach: CC FA Needle Type: Eviva Cores: 6 Skin Nicks: 1 Gauge: 9 The procedure of stereotactic guided core biopsy was explained to the patient. Benefits, alternatives, and risks were discussed. An informed consent was then obtained. The shortness pathway for biopsy was chosen. Shortness pathway was superior approach. I performed the localization, then surgeon, Dr. Carias performed the remainder of the procedure. A vacuum assisted biopsy gun was used to obtain multiple core samples. The patient tolerated the procedure well without any immediate complication. The patient was kept in the radiology department for short stay after the procedure and then discharged home in stable condition. Targeted calcifications are identified in specimen mammogram. Post biopsy mammogram shows the clip to appear in satisfactory position relative to the targeted area of concern on the preprocedure images. Impression: SUCCESSFUL, UNCOMPLICATED STEREOTACTIC GUIDED CORE BIOPSY OF AREA OF CONCERN IN THE RIGHT BREAST. Pathology Results: Result: Benign, Fibrocystic change. Pathology and radiology were reviewed. Findings are concordant. A. RIGHT BREAST, CORE BIOPSY: Benign breast with fibrocystic changes including fibrosis and calcifications. B. LEFT BREAST, CORE BIOPSY: Benign breast with fibrocystic changes including fibrosis, cysts, apocrine metaplasia and calcifications. Overall Assessment: Benign Management: Diagnostic Mammogram of both breasts in 6 months. Electronically signed and approved by: Fernando Carias D.O. Radiologis
== END ==
LOC: RADMAMWWP 10:06
PROVIDERS: ATTEND Internal Medicine
DX: N60.82 Other benign mammary dysplasias of left breast (principal); N60.12 Diffuse cystic mastopathy of left breast; R92.8 Other abnormal and inconclusive findings on diagnostic imaging of breast
CPT/HCPCS: 88305; 19081; 19082 ×2; A4648; J2001

== ENCOUNTER → 2024-04-17 | Outpatient (CLI) | payer OTHER ==
[2024-04-17 15:22] LABS: HCT 43.9 % (37.2-46.3); HGB 13.9 g/dL (12.0-15.0); MCH 30.9 pg (27.0-32.0); MCHC 31.7 g/dL (32.0-37.0); MCV 97.6 FL (80.0-97.0); NRBC Per 100 WBC 0 X 10*3/uL (0.00-0.01); Platelet Count 218 X 10*3/uL (140-440)
[2024-04-17 15:46] LABS: Chol/HDL Ratio 1.96 Ratio; VLDL Calculation 17.48 mg/dL (5.00-40.00)
[2024-04-17 15:47] LABS: ALT 50 U/L (8-44); AST 18 U/L (13-35); Albumin 4.9 g/dL (3.8-4.9); Albumin/Globulin Ratio 2.58 Ratio (1.60-3.17); Alkaline Phosphatase 57 U/L (41-126); BUN/Creat Ratio 16.75 Ratio (12.00-20.00); Blood Urea Nitrogen 13.4 mg/dL (9.0-27.0); Calcium 9.7 mg/dL (8.7-10.3); Carbon Dioxide 28.8 mmol/L (21.6-31.8); Chloride 101 mmol/L (96-109); Globulin 1.9 g/dL (1.6-3.3); Glucose 100 mg/dL (70-110); LDL Cholesterol,Calculated 39.8 mg/dL (0.0-131.0); Potassium 4.9 mmol/L (3.5-5.5); Sodium 140 mmol/L (135-145); Total Bilirubin 0.3 mg/dL (0.3-1.2); Total Protein 6.8 g/dL (6.2-8.2)
[2024-04-17 15:58] LABS: NT-Pro-B-Type Natriuretic Pept <36 pg/mL (0-125)
== END | disposition home or self-care (01) ==
LOC: LABWHC1 07:49
PROVIDERS: ATTEND Student in an Organized Health Care Education/Training Program
DX: E78.5 Hyperlipidemia, unspecified (principal); R07.9 Chest pain, unspecified
CPT/HCPCS: 36415; 80053; 80061; 83036; 83880; 84443; 85027

== ENCOUNTER → 2025-04-03 | Outpatient (CLI) | payer OTHER ==
[2025-04-03 15:52] LABS: HGB 13.1 g/dL (12.0-15.0); MCH 30.5 pg (27.0-32.0); MCHC 32.8 g/dL (32.0-37.0); MCV 93.2 FL (80.0-97.0); Mean Platelet Volume 11.2 FL (9.5-12.2); NRBC Per 100 WBC 0 X 10*3/uL (0.00-0.01); Platelet Count 181 X 10*3/uL (140-440); RBC 4.29 X 10*6/uL (4.10-5.20); RDW 12.8 % (11.5-14.5); WBC 5.01 X 10*3/uL (4.50-10.00)
[2025-04-03 16:34] LABS: NT-Pro-B-Type Natriuretic Pept <36 pg/mL (0-125)
[2025-04-03 16:40] LABS: ALT 21 U/L (8-44); AST 17 U/L (13-35); Albumin 4.7 g/dL (3.8-4.9); Albumin/Globulin Ratio 2.24 Ratio (1.60-3.17); Alkaline Phosphatase 59 U/L (41-126); Blood Urea Nitrogen 6.3 mg/dL (9.0-27.0); C Reactive Protein <0.30 mg/dL (0.00-0.80); Carbon Dioxide 24.4 mmol/L (21.6-31.8); Chloride 105 mmol/L (96-109); Chol/HDL Ratio 1.97 Ratio; Globulin 2.1 g/dL (1.6-3.3); Glucose 90 mg/dL (70-110); LDL Cholesterol,Calculated 38.4 mg/dL (0.0-131.0); Potassium 4.1 mmol/L (3.5-5.5); Sodium 143 mmol/L (135-145); Total Bilirubin <0.2 mg/dL (0.3-1.2); Total Protein 6.8 g/dL (6.2-8.2)
== END | disposition home or self-care (01) ==
LOC: LABWHC1 10:55
PROVIDERS: ATTEND Student in an Organized Health Care Education/Training Program
DX: Z13.6 Encounter for screening for cardiovascular disorders (principal); D72.9 Disorder of white blood cells, unspecified; E11.9 Type 2 diabetes mellitus without complications; I50.9 Heart failure, unspecified; E78.5 Hyperlipidemia, unspecified; R79.89 Other specified abnormal findings of blood chemistry
CPT/HCPCS: 36415; 80053; 80061; 83036; 83880; 84443; 85027; 86140